=== PATIENT | male | born 1960 | race Caucasian/White ===

== ENCOUNTER 2025-02-23 11:04 | Outpatient (CLI) | payer MEDICARE, MEDICAID ==
--- NOTE | 2025-02-23 13:45 | RADIOLOGY REPORT ---
CLINICAL INFORMATION: 64 years old, Male; PAIN IN LEFT SHOULDER. TECHNIQUE: Multisequence multiplanar MRI images of the left shoulder were obtained without contrast . COMPARISON: None FINDINGS: Acromioclavicular joint: There is moderate acromioclavicular hypertrophy and moderate edema. There is Type 2 acromion. Small amount of fluid in the subacromial / subdeltoid bursa. Rotator cuff tendons: Postsurgical changes of prior rotator cuff repair. Mild tendinosis of the dista l supraspinatus and infraspinatus tendons. Partial-thickness tear of the supraspinatus tendon inserti onal footprint near the previous surgical site, measures up to 1 cm in AP dimension and 1 cm in proxi mal to distal dimension, with bursal surface communication at its anterior aspect, involving greater than 50% of the tendon thickness. 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 Subscapularis and teres minor tendons appear intact. Biceps tendon: No significant tendinosis. No evidence of attrition or tear. Labrum: Limited evaluation due to motion artifact. No labral tear identified. Bones: No fracture or focal marrow contusion. Muscles: No significant atrophy. No evidence of muscle strain or tear. Other: Motion artifact limits evaluation. IMPRESSION: 1. Motion limited study. 2. Postsurgical changes of prior rotator cuff repair. Partial-thickness bursal surface tear involving the supraspinatus insertional footprint as described above. 3. 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 4. Moderate acromioclavicular hypertrophy. 5. Mild subacromial/ subdeltoid bursitis.
== END 2025-02-23 23:59 | disposition home or self-care (01) ==
LOC: MRI02 11:04
PROVIDERS: ATTEND Orthopaedic Surgery
DX: S46.012A Strain of muscle(s) and tendon(s) of the rotator cuff of left shoulder, initial encounter (principal); M25.512 Pain in left shoulder; X58.XXXA Exposure to other specified factors, initial encounter; Y93.89 Activity, other specified; Y92.89 Other specified places as the place of occurrence of the external cause; Y99.8 Other external cause status; M75.52 Bursitis of left shoulder; M89.312 Hypertrophy of bone, left shoulder
CPT/HCPCS: 73221